=== PATIENT | female | born 1995 | race Caucasian/White ===

== ENCOUNTER 2016-10-21 18:51 | Emergency (ER) | payer OTHER ==
[~2016-10-21] VITALS: Ht 134.6 cm; Wt 48.0 kg
[~2016-10-21 18:51] MED LIST: BIRTH CONTROL PO; FLONASE16 G1 BOTH NARES; MUCINEX D ER T1 EACH PO; PREDNISONE50 MG PO; TESSALON PERLE100 MG PO
[2016-10-21 19:37] LABS: HEMATOCRIT 42.3 % (36.0-46.0); MCHC 32.9 G/DL (30.0-36.0); MCV 82.1 FL (83-99); MEAN PLAT.VOLUME 10.6 uM^3 (9.5-12.4); PLATELET COUNT 301 K/uL (156-360); RBC DIS.WIDTH-CV 13.8 % (11.8-14.6); RBC DIS.WIDTH-SD 40.5 % (39-53); RED BLOOD COUNT 5.15 M/uL (3.80-5.20); WHITE BLOOD COUNT 7.8 K/uL (4.1-10.2)
[2016-10-21 19:53] LABS: CHLORIDE 106 mEq/L (99-109); SODIUM 140 mEq/L (136-147)
[2016-10-21 19:55] LABS: GLUCOSE 89 mg/dL (70-99)
[2016-10-21 19:57] LABS: ANION GAP 9 MEQ/L (2-14); TOTAL BILIRUBIN 0.3 mg/dL (0.0-1.0)
[2016-10-21 19:59] LABS: ALKALINE PHOSPHATASE 100 IU/L (3-129); GFR ESTIMATE (CALCULATED) > 59 mL/min/
[2016-10-21 20:00] LABS: UREA NITROGEN (BUN) 8 mg/dL (9-23)
[2016-10-21 20:10] LABS: QUANTITATIVE HCG < 4.0 MIU/ML
[2016-10-21 20:27] LABS: ADD MIUA? NO; BILIRUBIN NEGATIVE; BLOOD NEGATIVE; COLOR STRAW ((YELLOW)); GLUCOSE (STRIP) NEGATIVE; KETONES NEGATIVE; LEUKOCYTES NEGATIVE; NITRITE NEGATIVE; PROTEIN (STRIP) NEGATIVE; SPECIFIC GRAVITY 1.003 (1.000-1.030); UCUL ADDED? NO; UROBILINOGEN 0.2 MG/DL (0.2-1.0)
[2016-10-21 21:47] VITALS: BP 121/80
== END 2016-10-21 21:47 | disposition home or self-care (01) ==
LOC: EME 18:51
DX: N92.6 Irregular menstruation, unspecified (principal); R10.2 Pelvic and perineal pain; Z79.3 Long term (current) use of hormonal contraceptives; Z87.891 Personal history of nicotine dependence
CPT/HCPCS: 80053; 81003; 84702; 85027; 99281; 99284

== ENCOUNTER 2017-03-30 15:27 | Emergency (ER) | payer OTHER ==
[~2017-03-30] VITALS: Ht 134.6 cm; Wt 49.6 kg
[2017-03-30] MEDS ORDERED: PRENATAL TABLE1 EAC3 PO (15:36)
[2017-03-30] MEDS ORDERED: VENTOLIN HFA18 GM IH (15:37)
[2017-03-30 16:19] VITALS: BP 118/66
== END 2017-03-30 16:21 | disposition home or self-care (01) ==
LOC: EME → EDBD 15:27 → EME 15:27
DX: Z04.1 Encounter for examination and observation following transport accident (principal); O26.892 Other specified pregnancy related conditions, second trimester; R10.9 Unspecified abdominal pain; Z3A.19 19 weeks gestation of pregnancy; J45.909 Unspecified asthma, uncomplicated; Q05.9 Spina bifida, unspecified; M41.9 Scoliosis, unspecified
CPT/HCPCS: 99281; 99284

== ENCOUNTER 2017-08-19 07:07 | Inpatient (IN) | payer OTHER ==
[~2017-08-19] VITALS: Ht 134.6 cm; Wt 56.4 kg
[2017-08-19] VITALS (21 sets, daily range): BP systolic 91–147; BP diastolic 55–87
[~2017-08-19 07:07] MED LIST changes: +PRENATAL TABLE1 EAC3 PO; +VENTOLIN HFA18 GM IH
[2017-08-19 09:11] LABS: BASOPHIL (%) 0.4 % (0-1); EOSINOPHIL (%) 1.5 % (0-5); EOSINOPHIL COUNT 0.1 K/uL (0-0.3); HEMATOCRIT 32.6 % (36.0-46.0); HEMOGLOBIN 9.9 G/DL (11.9-15.5); IMMATURE GRANULOCYTE (%) 0.7 % (0.0-0.7); LYMPHOCYTE (%) 33.1 % (15-42); LYMPHOCYTE COUNT 2.4 K/uL (1.0-2.8); MCH 21.1 PG (29.0-34.0); MCHC 30.4 G/DL (30.0-36.0); MCV 69.4 FL (83-99); MONOCYTE (%) 7.9 % (3-12); MONOCYTE COUNT 0.6 K/uL (0-0.8); NEUTROPHIL (%) 56.4 % (45-76); NEUTROPHIL COUNT 4.1 K/uL (1.8-6.4); PLATELET COUNT 202 K/uL (156-360); RBC DIS.WIDTH-CV 17.6 % (11.8-14.6); RBC DIS.WIDTH-SD 42.5 % (39-53); WHITE BLOOD COUNT 7.3 K/uL (4.1-10.2)
[2017-08-19] MEDS ORDERED: IBUPROFEN800 MG PO (23:33)
[2017-08-19] MEDS ORDERED: HYDROCODON-ACE1 EAC7 PO (23:33)
[2017-08-20] VITALS (8 sets, daily range): BP systolic 106–125; BP diastolic 57–77
[2017-08-20 07:03] LABS: BASOPHIL (%) 0.3 % (0-1); EOSINOPHIL (%) 0.2 % (0-5); HEMOGLOBIN 8.6 G/DL (11.9-15.5); IMMATURE GRANULOCYTE (%) 0.7 % (0.0-0.7); LYMPHOCYTE (%) 16.5 % (15-42); LYMPHOCYTE COUNT 2.5 K/uL (1.0-2.8); MCH 21.3 PG (29.0-34.0); MCHC 30.7 G/DL (30.0-36.0); MCV 69.3 FL (83-99); MONOCYTE (%) 6.7 % (3-12); NEUTROPHIL (%) 75.6 % (45-76); NEUTROPHIL COUNT 11.3 K/uL (1.8-6.4); PLATELET COUNT 170 K/uL (156-360); RBC DIS.WIDTH-CV 17.4 % (11.8-14.6); RBC DIS.WIDTH-SD 42.8 % (39-53); RED BLOOD COUNT 4.04 M/uL (3.80-5.20); WHITE BLOOD COUNT 14.9 K/uL (4.1-10.2)
[2017-08-21 07:05] VITALS: BP 111/65
[2017-08-21 11:30] VITALS: BP 114/60
[2017-08-21 15:05] VITALS: BP 125/82
[2017-08-22 07:46] VITALS: BP 120/75
[2017-08-22 14:57] VITALS: BP 129/70
[2017-08-22 22:47] VITALS: BP 122/75
[2017-08-23 07:41] VITALS: BP 108/59
== END 2017-08-23 15:00 | disposition home or self-care (01) | DRG 765 ==
LOC: LDRP-OP 07:07 → 2WEST 07:08 → LDRP-OP 12:34 → 2WEST 23:03
PROVIDERS: Midwife; Obstetrics & Gynecology Obstetrics
PROC: 3E033VJ Introduction of Other Hormone into Peripheral Vein, Percutaneous Approach (ICD-10-PCS; principal; 2017-08-19)
PROC: 3E0R3BZ Introduction of Anesthetic Agent into Spinal Canal, Percutaneous Approach (ICD-10-PCS; principal; 2017-08-19)
PROC: 00HU33Z Insertion of Infusion Device into Spinal Canal, Percutaneous Approach (ICD-10-PCS; principal; 2017-08-19)
PROC: 10D00Z1 Extraction of Products of Conception, Low, Open Approach (ICD-10-PCS; principal; 2017-08-19)
PROC: 10907ZC Drainage of Amniotic Fluid, Therapeutic from Products of Conception, Via Natural or Artificial Opening (ICD-10-PCS; principal; 2017-08-19)
DX: O24.420 Gestational diabetes mellitus in childbirth, diet controlled (principal); O34.13 Maternal care for benign tumor of corpus uteri, third trimester; O36.5930 Maternal care for other known or suspected poor fetal growth, third trimester, not applicable or unspecified; O69.81X0 Labor and delivery complicated by cord around neck, without compression, not applicable or unspecified; O62.0 Primary inadequate contractions; O76 Abnormality in fetal heart rate and rhythm complicating labor and delivery; O99.52 Diseases of the respiratory system complicating childbirth; J45.909 Unspecified asthma, uncomplicated; D25.2 Subserosal leiomyoma of uterus; M41.9 Scoliosis, unspecified; Q05.9 Spina bifida, unspecified; Z79.899 Other long term (current) drug therapy; Z3A.39 39 weeks gestation of pregnancy; Z37.0 Single live birth
CPT/HCPCS: 82948; 85025; 88307; C1755; J0595; J0690; J1885; J2274; J3010; J7120